=== PATIENT | female | born 1955 | race African-American/Black ===

== ENCOUNTER 2016-08-31 09:20 | Day surgery (SDC) | payer BC ==
[2016-08-31] MEDS ORDERED: NS 500 ML IV 500 ML IV ONE (10:50)
[2016-08-31] MEDS ORDERED: TETRACAINE HCL AFFEYE ONE ×2 (12:47→12:55)
[2016-08-31] MEDS ORDERED: BETADINE OPHTH SOLN 5% EACHEYE ONE (12:47)
[2016-08-31] MEDS ORDERED: VIGAMOX 0.5% OPHTH 1 DOSE AFFEYE ONE (12:56)
[2016-08-31 15:55] VITALS: BP 134/75
== END 2016-08-31 13:33 | disposition home or self-care (01) ==
LOC: SURG1 09:20
PROVIDERS: ATTEND Ophthalmology
PROC: 08BTXZX Excision of Left Conjunctiva, External Approach, Diagnostic (ICD-10-PCS; principal; 2016-08-31 17:45)
PROC: 08U107Z Supplement of Left Eye with Autologous Tissue Substitute, Open Approach (ICD-10-PCS; principal; 2016-08-31 17:45)
DX: H11.002 Unspecified pterygium of left eye (principal)
CPT/HCPCS: A4217

== ENCOUNTER 2016-09-14 06:40 | Day surgery (SDC) | payer BC ==
[2016-09-14] MEDS ORDERED: NS 500 ML IV 500 ML IV ONE (07:17)
[2016-09-14] MEDS ORDERED: TETRACAINE 0.5% OPHTH 1 DOSE AFFEYE ONE ×6 (07:33→09:41)
[2016-09-14] MEDS ORDERED: VIGAMOX 0.5% OPHTH 1 DOSE AFFEYE ONE ×5 (07:34→09:29)
[2016-09-14] MEDS ORDERED: PROLENSA OPHTH 1 DOSE AFFEYE ONE (07:45)
[2016-09-14] MEDS ORDERED: ALPHAGAN-P OPHTH 1 DOSE AFFEYE ONE (07:46)
[2016-09-14] MEDS ORDERED: CYCLOGYL 1% OPHTH 1 DOSE OP ONE ×4 (07:47→07:50)
[2016-09-14] MEDS ORDERED: MYDRIACIL OPHTH 1 DOSE AFFEYE ONE ×4 (07:47→07:50)
[2016-09-14] MEDS ORDERED: AK-DILATE 2.5% OPHTH 1 DOSE OP ONE ×4 (07:47→07:50)
[2016-09-14] MEDS ORDERED: BETADINE OPHTH SOLN 5% EACHEYE ONE ×2 (08:57→09:15)
[2016-09-14] MEDS ORDERED: ADRENALINE CHL INJ IJ ONE ×3 (08:58→09:41)
[2016-09-14] MEDS ORDERED: DUOVISC IO ONE ×3 (08:59→09:41)
[2016-09-14] MEDS ORDERED: XYLOCAINE-MPF 1% IJ ONE ×3 (08:59→09:41)
[2016-09-14] MEDS ORDERED: BSS OPHTH (PLAIN) 500 ML with VANCOMYCIN HCL 500 MG VIAL 25 MG, ADRENALINE CHL INJ 1 MG IR ONE ×6 (09:29)
[2016-09-14 10:02] VITALS: BP 141/77
[2016-09-14] MEDS ORDERED: DIPRIVAN VIAL ONE (15:35)
[2016-09-14] MEDS ORDERED: VERSED ONE (15:35)
== END 2016-09-14 10:05 | disposition home or self-care (01) ==
LOC: SURG1 06:40
PROVIDERS: ATTEND Ophthalmology
PROC: 08RJ3JZ Replacement of Right Lens with Synthetic Substitute, Percutaneous Approach (ICD-10-PCS; principal; 2016-09-14 09:45)
PROC: 08DJ3ZZ Extraction of Right Lens, Percutaneous Approach (ICD-10-PCS; principal; 2016-09-14 09:45)
DX: H25.11 Age-related nuclear cataract, right eye (principal); H25.011 Cortical age-related cataract, right eye; H25.041 Posterior subcapsular polar age-related cataract, right eye
CPT/HCPCS: A4217; J0170; J2250; J3370; J3490

== ENCOUNTER 2016-09-28 08:52 | Day surgery (SDC) | payer BC ==
[2016-09-28] MEDS ORDERED: NS 500 ML IV 500 ML IV ONE (10:59)
[2016-09-28] MEDS ORDERED: TETRACAINE 0.5% OPHTH 1 DOSE AFFEYE ONE ×4 (11:00→13:47)
[2016-09-28] MEDS ORDERED: VIGAMOX 0.5% OPHTH 1 DOSE AFFEYE ONE ×6 (11:02→13:58)
[2016-09-28] MEDS ORDERED: PROLENSA OPHTH 1 DOSE AFFEYE ONE (11:15)
[2016-09-28] MEDS ORDERED: ALPHAGAN-P OPHTH 1 DOSE AFFEYE ONE (11:18)
[2016-09-28] MEDS ORDERED: CYCLOGYL 1% OPHTH 1 DOSE OP ONE ×6 (11:19→11:34)
[2016-09-28] MEDS ORDERED: AK-DILATE 2.5% OPHTH 1 DOSE OP ONE ×6 (11:20→11:35)
[2016-09-28] MEDS ORDERED: MYDRIACIL OPHTH 1 DOSE AFFEYE ONE ×6 (11:21→11:36)
[2016-09-28] MEDS ORDERED: BETADINE OPHTH SOLN 5% EACHEYE ONE (13:27)
[2016-09-28] MEDS ORDERED: XYLOCAINE-MPF 1% IJ ONE ×2 (13:41→13:47)
[2016-09-28] MEDS ORDERED: ADRENALINE CHL INJ IJ ONE ×2 (13:41→13:47)
[2016-09-28] MEDS ORDERED: DUOVISC IO ONE ×2 (13:41→13:47)
[2016-09-28] MEDS ORDERED: BSS OPHTH (PLAIN) 500 ML with VANCOMYCIN HCL 500 MG VIAL 25 MG, ADRENALINE CHL INJ 1 MG IR ONE ×6 (13:42)
[2016-09-28 14:21] VITALS: BP 138/65
== END 2016-09-28 14:43 | disposition home or self-care (01) ==
LOC: SURG1 08:52
PROVIDERS: ATTEND Ophthalmology
PROC: 08DK3ZZ Extraction of Left Lens, Percutaneous Approach (ICD-10-PCS; principal; 2016-09-28 16:30)
PROC: 08RK3JZ Replacement of Left Lens with Synthetic Substitute, Percutaneous Approach (ICD-10-PCS; principal; 2016-09-28 16:30)
DX: H25.12 Age-related nuclear cataract, left eye (principal); H25.012 Cortical age-related cataract, left eye; H25.042 Posterior subcapsular polar age-related cataract, left eye
CPT/HCPCS: A4217; J0170; J3370